=== PATIENT | male | born 1980 | race Two or more races ===

== ENCOUNTER 2021-06-09 11:11 | Emergency (ER) | payer OTHER ==
[~2021-06-09] VITALS: Ht 170.2 cm; Wt 90.7 kg
[2021-06-09] MEDS ORDERED: KETO10TA2 PO (14:34)
[2021-06-09] MEDS ORDERED: NORFLEX100MG PO (14:34)
== END 2021-06-09 14:56 | disposition home or self-care (01) ==
LOC: ER 11:11
DX: M54.50 Low back pain, unspecified (principal); I10 Essential (primary) hypertension